=== PATIENT | male | born 1955 | race Caucasian/White ===

== ENCOUNTER → 2019-04-15 | Day surgery (SDC) | payer OTHER ==
[2019-04-13 15:30] LABS: BASOPHILS % 0.6 % (0.0-1.0); EOSINOPHILS # (AUTO) 0.2 (0.0-0.4); EOSINOPHILS % 3.5 % (0.0-6.0); HEMATOCRIT 37.9 % (38.2-49.6); LYMPHOCYTES # (AUTO) 1.5 (1.0-3.2); LYMPHOCYTES % 31.3 % (18.0-39.1); MEAN CORPUSCULAR HEMOGLOBIN 31.3 pg (28-32); MEAN CORPUSCULAR HGB CONC 34.3 g/dL (31-35); MEAN CORPUSCULAR VOLUME 91.3 fL (81-99); MONOCYTES # (AUTO) 0.4 (0.2-0.8); MONOCYTES % 9.5 % (4.4-11.3); NEUTROPHILS # (AUTO) 2.5 (2.1-6.9); NEUTROPHILS % 54.9 % (38.7-80.0); PLATELET COUNT 117 x10e3/uL (140-360); RED BLOOD COUNT 4.15 x10e6/uL (4.3-5.7); RED CELL DISTRIBUTION WIDTH 12.4 % (11.7-14.4)
[2019-04-13 15:54] LABS: ALBUMIN 3.5 g/dL (3.5-5.0); ALBUMIN/GLOBULIN RATIO 1.1 (0.8-2.0); ANION GAP 11.2 mmol/L (8-16); CALCIUM 9.2 mg/dL (8.4-10.2); CREATININE, SERUM 1.98 mg/dL (0.72-1.25); POTASSIUM 4.2 mmol/L (3.5-5.1)
[2019-04-15] VITALS (11 sets, daily range): BP systolic 118–134; BP diastolic 69–95
[~2019-04-15] VITALS: Ht 162.6 cm; Wt 97.5 kg
[~2019-04-15] MED LIST: ALLOPURINOL300 MG PO; ASPIR 8181 MG PO; DIPHENHYDRAMINE HCL INJ 50 MG/ML VIAL IV ONE; DOXAZOSIN MESYLA2 MG PO; ETODOLAC500 MG PO; FUROSEMIDE PO; FUROSEMIDE40 MG PO; HYDROCHLOROTHIA25 MG PO; LOSARTAN POTASS25 MG PO; METHYLPREDNISOLONE SOD SUCC 125 MG/2ML VIAL IV ONE; METOPROLOL SUCC50 MG PO; METOPROLOL TART50 MG PO; PANTOPRAZOLE SO40 MG PO; VERAPAMIL ER240 MG PO; VITAMIN D2000 UNIT PO
--- NOTE | 2019-04-15 13:45 | NUR ---
1345 Received pt in Rm #10 Report form Yamila EVANS. Identiferx2 Dr Jimenez LAD lesion non fix, will com back Rt TR band approach 12cc in balloon. Intact neuro vascular function No gross issues with pain pallor pressure or dysrhythmia.Ok to decrease air at 1415pm Back to baseline orientation Tolerating po intake. Abdomen soft and non tender Denies necessity to defecate or urinate. Bilateral PPx4 present. Iv intact w/o s/s infiltration. Discharge POC and copies with pt and family member . 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 Aware of importance of f/o has copies POC and escorted to vehicle with [facility] employee by w/c.Denies CP or SOB No gross issues pain pallor pressure or dysrhythmia.
--- NOTE | 2019-05-02 21:02 | Operative Report ---
DATE OF PROCEDURE: 04/15/2019 SURGEON: Jaskaran Jimenez MD INDICATION FOR PROCEDURE: Chest pain, syncope and ventricular tachycardia. PROCEDURES PERFORMED: 1. Coronary angiography, right radial approach. 2. Attempted PCI of the left anterior descending artery, unsuccessful. 3. Left heart catheterization. PROCEDURE IN DETAILS: The patient was brought to the cardiac catheterization laboratory in a fasting state. Right wrist was prepped and draped in a sterile fashion. A 6-Austrian Slender sheath was inserted in the right radial artery using modified Seldinger technique. Coronary angiography was performed using Minna radial catheter to engage both left and the right coronary systems. Multiple orthogonal views were taken of each coronary artery. This demonstrated severe 90% plaque in the mid LAD just after the bifurcation of diagonal one. This was very angulated and tortuous lesion. Given the patient's clinical picture, we decided to proceed with PCI to the mid LAD. IV boluses of heparin were given to maintain a CT over 300. We exchanged the diagnostic catheter for a 6-Austrian XB 3.5 guide catheter, this did not see too well, however, larger XB catheter was not available in the inventory. This was wired initially using FFR wire. We were going to perform FFR to rule out tortuosity is being the reason for appearance of stenosis in this vessel. However, once guide catheter was in place and we attempted to wire the lesion, it became increasingly obvious that this was in fact a very very tight 90% lesion. We were unable to cross even with a wire. We exchanged the FFR wire for a Workhorse run-through wire after significant difficulty in wiring due to tortuosity and calcification. We were eventually able to wire the lesion with the run-through wire; however, we were unable to deliver even a 1.2 x 12 mm balloon past the lesion to perform balloon angioplasty. We then attempted with a GuideLiner; however, no devices were able to be delivered. We attempted to geovany wire the lesion, however, were unsuccessful. Given the contrast and radiation limitations and poor guide support, we decided to abort further PCI attempts and reschedule the planned PCI of the LAD via femoral approach the following week. The patient tolerated the procedure well and there were no immediate complications. All catheters were removed over a wire, arteriotomy was closed using a TR band device. Significant findings 90% tortuous calcified lesion of the mid LAD, otherwise only mild nonobstructive CAD. ESTIMATED BLOOD LOSS: 50 mL. GRAFTS AND IMPLANTS: None. SPECIMEN REMOVED: None. COMPLICATIONS: None. FINAL RECOMMENDATIONS: A 90% calcified mid LAD lesion, unable to PCI due to poor guide support via right radial approach. We will plan for staged PCI the following week via right femoral approach and 7 or 8-Austrian guide system. MD ADRIANNE Hughes/REKHA /[id number]
== END | disposition home or self-care (01) ==
LOC: CATH LAB 08:25
PROVIDERS: ATTEND Internal Medicine
DX: I25.10 Atherosclerotic heart disease of native coronary artery without angina pectoris (principal); I77.1 Stricture of artery; I87.2 Venous insufficiency (chronic) (peripheral); I47.2 Ventricular tachycardia; I10 Essential (primary) hypertension; R00.2 Palpitations; Z01.812 Encounter for preprocedural laboratory examination; Z79.82 Long term (current) use of aspirin; Z68.36 Body mass index [BMI] 36.0-36.9, adult; Z86.19 Personal history of other infectious and parasitic diseases; Z82.49 Family history of ischemic heart disease and other diseases of the circulatory system
CPT/HCPCS: 36415; 80053; 85025; 92920; 93454; C1725 ×2; C1874

== ENCOUNTER 2019-04-20 07:28 | Inpatient (IN) | payer OTHER ==
[2019-04-19 14:29] LABS: BASOPHILS % 0.4 % (0.0-1.0); EOSINOPHILS # (AUTO) 0.2 (0.0-0.4); EOSINOPHILS % 3.3 % (0.0-6.0); HEMOGLOBIN 13.3 g/dL (14.0-18.0); LYMPHOCYTES # (AUTO) 1.2 (1.0-3.2); LYMPHOCYTES % 22.8 % (18.0-39.1); MEAN CORPUSCULAR HEMOGLOBIN 31.4 pg (28-32); MEAN CORPUSCULAR VOLUME 89.8 fL (81-99); MONOCYTES # (AUTO) 0.4 (0.2-0.8); MONOCYTES % 6.4 % (4.4-11.3); NEUTROPHILS # (AUTO) 3.7 (2.1-6.9); NEUTROPHILS % 66.9 % (38.7-80.0); PLATELET COUNT 126 x10e3/uL (140-360); RED BLOOD COUNT 4.23 x10e6/uL (4.3-5.7); RED CELL DISTRIBUTION WIDTH 12.7 % (11.7-14.4)
[2019-04-19 14:39] LABS: INR 0.89; PARTIAL THROMBOPLASTIN TIME 23.4 seconds (23.8-35.5); PROTHROMBIN TIME 12.5 seconds (11.9-14.5)
[2019-04-19 15:10] LABS: ALBUMIN 3.8 g/dL (3.5-5.0); ALBUMIN/GLOBULIN RATIO 1.3 (0.8-2.0); CALCIUM 9.2 mg/dL (8.4-10.2); CREATININE, SERUM 1.69 mg/dL (0.72-1.25)
[2019-04-20] VITALS (22 sets, daily range): BP systolic 96–124; BP diastolic 60–94
[~2019-04-20] VITALS: Ht 162.6 cm; Wt 97.1 kg
[~2019-04-20 07:28] MED LIST changes: -DIPHENHYDRAMINE HCL INJ 50 MG/ML VIAL IV ONE; -METHYLPREDNISOLONE SOD SUCC 125 MG/2ML VIAL IV ONE
[2019-04-20] MEDS ORDERED: HEPARIN SOD (PORCINE) 1000 UNIT/ML 30ML ONE (07:47)
[2019-04-20] MEDS ORDERED: VERAPAMIL HCL 2.5 MG/ML 2 ML VIAL ONE (07:47)
[2019-04-20] MEDS ORDERED: LIDOCAINE HCL 2% LOCAL 20 ML VIAL ONE (07:48)
[2019-04-20] MEDS ORDERED: NITROGLYCERIN/D5W 200 MCG/ML 250 ML ONE (07:48)
[2019-04-20] MEDS ORDERED: FENTANYL CITRATE/PF 100MCG/2 ML INJ ONE (07:48)
[2019-04-20] MEDS ORDERED: IOPAMIDOL 370 MG/ML 200 ML INFUS..BTL INJ ONE ×2 (07:48→09:02)
[2019-04-20] MEDS ORDERED: SODIUM CHLORIDE 0.9% 1000ML 1,000 ML ONE (07:48)
[2019-04-20] MEDS ORDERED: MIDAZOLAM HCL 2 MG/2 ML VIAL ONE (07:48)
[2019-04-20] MEDS ORDERED: FAMOTIDINE 20 MG/2 ML VIAL IV ONE (08:08)
[2019-04-20] MEDS ORDERED: DIPHENHYDRAMINE HCL INJ 50 MG/ML VIAL ONE (08:08)
[2019-04-20] MEDS ORDERED: METHYLPREDNISOLONE SOD SUCC 125 MG/2ML VIAL ONE (08:08)
[2019-04-20] MEDS ORDERED: ATROPINE SULFATE 0.1 MG/ML 10ML SYR ONE (09:18)
[2019-04-20] MEDS ORDERED: PHENYLEPHRINE HCL 1% 10 MG/ML VIAL ONE (10:54)
[2019-04-20] MEDS ORDERED: EPTIFIBATIDE 20 ML ONE (10:59)
[2019-04-20] MEDS ORDERED: TICAGRELOR 90 MG TABLET ONE (11:03)
[2019-04-20] MEDS ORDERED: ASPIRIN 325 MG TAB ONE (11:03)
--- NOTE | 2019-04-20 11:15 | NUR ---
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 Back to baseline orientation. Resp shallow and regular No gross issues pain pallor pressure or dysrhythmia. Iv infusing with Integrelin 2mcg/kg and 100cc hr Ns til 1 liter infused to left hand site w/o s/s infiltration. Abdomen soft and non tender Denies Necessity to defecate or urinate. Bilateral femoral pulses present Rt groin with angio seal no s/s hematoma or oozing. Denies c/o Cp or SOB ICU bed ordered. ds/rn
[2019-04-20] MEDS ORDERED: EPTIFIBATIDE 75mg 100ML 100 ML ONE (11:25)
--- NOTE | 2019-04-20 12:30 | NUR ---
1230 called report to ICU Nurse Guerda Rn Rm post 190 High alert handoff med check done Transported via zoll and stretcher wiht in occompiance Stable w/o c/o No gross issuews pain pallor pressure or dysthrthmia Iv infusing integrellin drip 15.6cc via controller 2mcg/kg/min. No s/s infiltration. Denies CP or SOB ds/rn
--- NOTE | 2019-04-20 12:31 | NUR ---
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 Mis aware of POC ds/rn
--- NOTE | 2019-04-20 12:39 | NUR ---
[id number] spoke with Charge nurse regarding bed necessity will call back posted bed. ds/rn
--- NOTE | 2019-04-20 13:15 | NUR ---
1315 Integrellin drip decreased dionicio 9cchr per Dr Jimenez transfer orders to ICU .Confirmed high alert med check with Guerda Rn (ICU) with rate change Face to face hand off complete .Down time 315pm. Diet ordered No gross issues pain pallor pressure or dysrhythmia.Admissions walked copy of transfer orders ds/rn
--- NOTE | 2019-04-20 13:15 | NUR ---
received patient to room. patient transferred from stretcher to bed with slide board. patient alert, calm, vss, dressing in place to groin with old minimal drainage, no swelling. admission complete. will continue to monitor
--- NOTE | 2019-04-20 13:15 | NUR ---
integrillin infusing to left hand at 9 cc/hr per order
[2019-04-20] MEDS ORDERED: EPTIFIBATIDE 2 MG/1 ML 10ML VIAL IV ONE (13:45)
[2019-04-20] MEDS ORDERED: EPTIFIBATIDE 75mg 100ML 100 ML IV SCH (14:00)
--- NOTE | 2019-04-20 16:14 | NUR ---
r groin dressing is more saturated with blood than when patient came. dressing removed, site oozing a little. applied manual pressure until bleeding stopped. new dressing in place, cdi
--- NOTE | 2019-04-20 19:30 | NUR ---
Received patient stable, no bleeding from the groin, no complaints raised, on Integrilin drip
[2019-04-20] MEDS ORDERED: TICAGRELOR 90 MG TABLET PO SCH (21:00)
[2019-04-20] MEDS ORDERED: ATORVASTATIN 20 MG TAB PO SCH (21:00)
[2019-04-20] MEDS ORDERED: ATORVASTATIN 40 MG TAB PO SCH (21:00)
[2019-04-21] VITALS (9 sets, daily range): BP systolic 81–143; BP diastolic 57–93
--- NOTE | 2019-04-21 05:07 | NUR ---
Integrilin drip stopped, patient remains stable, no complaints raised, dressing on the groin area intact, no bleeding noted
--- NOTE | 2019-04-21 07:14 | NUR ---
handed over stable.
[2019-04-21] MEDS ORDERED: ASPIRIN 81 MG ENTERIC COATED PO SCH (09:00)
--- NOTE | 2019-04-21 09:00 | NUR ---
seen by dr espinosa, discharged home. verbalizes understanding of current treatment and disease process. no questions regarding meds. no chest pain reported rt groin site soft no hematoma. left hand iv discontinues. some bleeding to site. held pressure for 2 min. taken in [place] to family car waiting for him.
--- NOTE | 2019-05-02 21:31 | Operative Report ---
DATE OF PROCEDURE: 04/20/2019 SURGEON: Jaskaran Jimenez MD INDICATION FOR PROCEDURE: Planned PCI of the left anterior descending artery. PROCEDURES PERFORMED: 1. Coronary angiography. 2. PCI to the LAD with CHANTAL x1. PROCEDURE IN DETAIL: The patient was brought to the cardiac catheterization laboratory in a fasting state. The right groin was prepped and draped in a sterile fashion. A 7-Tamazight sheath was inserted into the right femoral artery using ultrasound and fluoroscopic guidance with micropuncture technique without any complications. A 7-Tamazight XB 4.0 guide was used, provided excellent support. The mid LAD lesion was wired using a run-through wire. This was difficult due to calcification as well as tortuosity. We attempted to cross after wiring and with some difficulty we were able to cross with a 1.2 x 15 mm balloon and we performed balloon angioplasty at 20 atmospheres of pressure followed by 2.0 x 12 mm balloon also deployed at 20 mm. We then attempted to deliver a 2.25 Synergy stent; however, the stent was unable to cross due to likely a calcium spicule, so we decided to proceed further predilation using 2.5 x 12 mm noncompliant balloon, deployed at 16 atmospheres. Once again, we attempted to deliver 2.25 stent across the lesion, but we were unable to do so. Due to tortuosity and calcification, we then pre-dilated the lesion using a 3.0 x 12 mm NC balloon resulted in excellent balloon angioplasty. However, we were still unable to pass the stent across the lesion. We then exchanged the run-through wire for a stiff Grand slam wire over the wire balloon, but we were still unable to deliver the stent. We then proceeded to geovany wire the LAD using run-through wire, but we were still unable to deliver the stent. We then decided to use the anchoring balloon technique and put 2. 0 x 12 mm balloon in the mid LAD, deployed at 6 atmospheres to trap distal wire over which we were finally able to deliver 2.25 stent across the lesion. Prior to deployment of the stent, we decided to protect the diagonal one branch with the run-through wire with second run-through wire. We then deployed the stent at 18 atmospheres. Prior to the deployment of the stent, we removed the geovany wire and anchoring balloon. Once the stent was deployed, there appeared to be a small pinch of the ostium of the diagonal one. Given that this was a very large branch, we decided to rewire with run-through wire across this LAD stent struts and perform a balloon angioplasty of the ostium of the diagonal one using a 2.0 x 12 mm Emerge balloon deployed at 16 atmospheres. This resulted in excellent angiographic result with VENESSA-3 flow. No residual thrombus, dissection, or spasm. All catheters and wires were removed. Access site in the right groin was closed using Angio-Seal vascular closure device. Case ended without immediate complications. FINDINGS: Successful PCI of the mid LAD lesion with Synergy 2.25 x 16 mm drug-eluting stent deployed at 18 atmospheres. ESTIMATED BLOOD LOSS: 100 mL. GRAFTS AND IMPLANTS: Drug-eluting stent x1. SPECIMEN REMOVED: None. COMPLICATIONS: None. ASSESSMENT AND PLAN: 1. Continue dual-antiplatelet therapy with aspirin and Brilinta for at least one year followed by aspirin daily for life. 2. Follow up in clinic 2 weeks post procedure. MD ADRIANNE Hughes/REKHA /[id number]
== END 2019-04-21 09:23 | disposition home or self-care (01) | DRG 247 ==
LOC: CATH LAB 07:28 → CATH LAB V 13:46 → ICU 14:06
PROVIDERS: ADMIT Internal Medicine; ATTEND Internal Medicine
PROC: 027034Z Dilation of Coronary Artery, One Artery with Drug-eluting Intraluminal Device, Percutaneous Approach (ICD-10-PCS; principal; 2019-04-20)
DX: I25.119 Atherosclerotic heart disease of native coronary artery with unspecified angina pectoris (principal); I10 Essential (primary) hypertension; I87.2 Venous insufficiency (chronic) (peripheral)
CPT/HCPCS: 36415; 80053; 85025; 85610; 85730; 92928; C1725; C1766; C1769; C1874; J1200; J1327; J1644; J2001; J2250; J2370; J2930; J7030; Q9967

== ENCOUNTER → 2022-07-09 | Outpatient (CLI) | payer OTHER | LOC: RAD 08:49 | PROVIDERS: ATTEND Family Medicine | DX: I51.7 Cardiomegaly (principal); I65.23 Occlusion and stenosis of bilateral carotid arteries; I25.10 Atherosclerotic heart disease of native coronary artery without angina pectoris; I99.9 Unspecified disorder of circulatory system | CPT/HCPCS: 93306; 93880 ==